=== PATIENT | male | born 1955 | race Two or more races ===

== ENCOUNTER 2020-10-27 21:04 | Emergency (ER) | payer MEDICARE, OTHER ==
[~2020-10-27] VITALS: Ht 165.1 cm; Wt 59.0 kg
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
[2020-10-27] MEDS ORDERED: ACETAMINOPHEN 325 MG TABLET ONE (21:58)
[2020-10-27] MEDS: ACETAMINOPHEN 325 MG TABLET PO ONE (22:02)
[2020-10-27] MEDS: IBUPROFEN 600 MG TABLET PO ONE (22:33)
[2020-10-27 22:34] VITALS: BP 145/86
--- NOTE | 2020-10-27 22:34 | NUR ---
Patient discharged to home in stable condition. Written and verbal after care instructions given. Patient verbalizes understanding of instruction. Pt ambulated out of E.D.
== END 2020-10-27 22:34 | disposition home or self-care (01) ==
LOC: ER 21:06
DX: S02.2XXA Fracture of nasal bones, initial encounter for closed fracture (principal); S01.512A Laceration without foreign body of oral cavity, initial encounter; K02.9 Dental caries, unspecified; R51.9 Headache, unspecified; F17.200 Nicotine dependence, unspecified, uncomplicated; Z87.442 Personal history of urinary calculi; Z88.8 Allergy status to other drugs, medicaments and biological substances; Z88.1 Allergy status to other antibiotic agents; Y08.89XA Assault by other specified means, initial encounter; Y93.89 Activity, other specified; Y92.89 Other specified places as the place of occurrence of the external cause; Y99.8 Other external cause status
CPT/HCPCS: 70450-TC; 70486-TC; 71045-TC